=== PATIENT | male | born 1980 | race American Indian/Alaskan Native ===

== ENCOUNTER 2018-01-25 05:58 | Emergency (ER) | payer OTHER ==
[2018-01-25] MEDS ORDERED: Sodium Chloride 0.9% 1,000 ML IV STA (07:34)
[2018-01-25] MEDS ORDERED: DiphenhydrAMINE 50 mg/ml Inj IV STA (07:34)
[2018-01-25] MEDS ORDERED: EPINEPHrine 1 mg/ml (1:1000) Inj SC STA (07:35)
[2018-01-25] MEDS ORDERED: EPINEPHrine 1 mg/ml (1:1000) Inj ONE (07:48)
--- NOTE | 2018-01-25 07:52 | ED PDOC ---
HPI: Allergic Reaction Time Seen by Provider: 01/25/18 07:14 Chief Complaint (Nursing): Allergic Reaction Chief Complaint (Provider): Allergic Reaction History Per: Patient History/Exam Limitations: no limitations Onset/Duration Of Symptoms: Days (x2) Current Symptoms Are (Timing): Still Present Additional Complaint(s): 37 year old male presenting for evaluation of upper and lower lip swelling, as well as lower facial swelling since 2100 last night. Patient states he was at the [employer] shop yesterday around 1400 when the [employer] used some kind of "dye" on his fernandez and lower face. Patient states his swelling began at 2100 yesterday and has persisted since. Patient reports itching to the affected areas, but denies any pain. Patient also reports taking Benadryl and using Calamine spray with no relief of symptoms. Patient denies any headache, tongue swelling, diff iculty breathing, associated pain, rash, chest pain, shortness of breath, fevers, or chills. PMD: Non-[facility] Provider ([place], [place]) Past Medical History Vital Signs: Last Vital Signs Temp 99.5 F 01/25/18 06:09 Pulse 90 01/25/18 06:09 Resp 16 01/25/18 06:09 BP 138/80 01/25/18 06:09 Pulse Ox 98 01/25/18 06:09 - Medical History PMH: No Chronic Diseases - Surgical History Surgical History: No Surg Hx - Family History Family History: States: Unknown Family Hx - Home Medications Home Medications: Ambulatory Orders Medication Instructions Recorded Amoxicillin/Clavulanate [Augmentin 1 tab PO BID 7 Days tab 01/25/18 875 MG-125 MG] Dexamethasone [Decadron] 10 mg PO TID 2 Days tablet 01/25/18 DiphenhydrAMINE [Benadryl] 25 mg PO TID PRN 5 Days cap 01/25/18 Epinephrine [Epipen] 0.3 mg SC ONCE PRN #3 auto.injct 01/25/18 Famotidine [Pepcid] 20 mg PO DAILY PRN #6 tab 01/25/18 - Allergies Allergies/Adverse Reactions: Allergies Allergy/AdvReac Type Severity Reaction Status Date / Time No Known Allergies Allergy Verified 01/25/18 06:17 Review of Systems ROS Statement: Except As Marked, All Systems Reviewed And Found Negative Constitutional: Negative for: Fever, Chills ENT: Positive for: Mouth Swelling (lip swelling, no intraoral swelling). Negative for: Mouth Pain, Throat Pain Cardiovascular: Negative for: Chest Pain Respiratory: Negative for: Shortness of Breath Neurological: Negative for: Headache Physical Exam - Reviewed Nursing Documentation Reviewed: Yes Vital Signs Reviewed: Yes - Physical Exam Appears: Positive for: Uncomfortable Head Exam: Positive for: ATRAUMATIC, NORMAL INSPECTION, NORMOCEPHALIC Skin: Positive for: Normal Color, Warm, Dry. Negative for: Rash (no rash or erythema noted to the body) Eye Exam: Positive for: EOMI, Normal appearance, PERRL ENT: Positive for: Other (upper and lower lip swelling, tongue not swollen, intraoral with no swelling or edema, lips non-tender; lower half of the face is swollen from the chin down through the neck, area is non-tender, fernandez noted, no rash or erythema noted) Neck: Positive for: Normal, Painless ROM, Supple Cardiovascular/Chest: Positive for: Regular Rate, Rhythm. Negative for: Murmur Respiratory: Positive for: Normal Breath Sounds. Negative for: Respiratory Distress Gastrointestinal/Abdominal: Positive for: Normal Exam, Soft. Negative for: Tenderness, Guarding, Rebound Back: Positive for: Normal Inspection. Negative for: L CVA Tenderness, R CVA Tenderness, Vertebral Tenderness Extremity: Positive for: Normal ROM. Negative for: Tenderness, Pedal Edema, C skilled nursing Tenderness, Deformity, Swelling Neurologic/Psych: Positive for: Alert, Oriented (x3). Negative for: Motor/Sensory Deficits - Laboratory Results Result Diagrams: 01/25/18 07:40 01/25/18 07:40 Interpretation Of Abn Labs: no acute - ECG O2 Sat by Pulse Oximetry: 98 (RA) Pulse Ox Interpretation: Normal - Progress ED Course And Treament: 930: Pt. stable. Lower lip swelling improving. Feels better and less swelling. Voice improving. Dr. Bai in ED and scoped pt. States no glottic swelling. Wants ct. 1000: Stable. Neck swelling improving. 1045: CT done and Dr. Bai reviewed. Wants pt. to be admitted and IV unasyn. 1230: Pt. eating, tolerating well. No dyspnea, tongue swelling. Upper lip still swollen, mild swelling lower lip. Mild swelling neck anterior. No pain. 1415: Pt. laughing with significant other in room. Is aaox3. Pain free. Has capacity to make decisions. Communicating in baseline voice per family. Mini mental status exam intact. Pt. states he feels much better. He does not want to be admitted for obs and further tx. Significant other aware of pt. decision. Pt. aware of high risk of or significant morbidity from swelling of the face, neck due to compromise of the airway. He may have real difficulty breathing or may not be able to breath. Pt. is aware of the risk and wishes to go home. Will dc with decadron, benadryl, pepcid, epipen, and antibiotics (augmentin) as recommded by Dr. Bai as pt. wants to go home. Currently, pt. upper lip is swollen fully, lower lip mildly swollen, anterior neck, chin, and lower 1/3 of face with swelling mild to moderate. No tenderness anywhere. No tongue swelling. No uvula swelling. - Critical Care Total Time (In Min): 120 Documented Critical Care: Time excludes all time spent performint seperately billable procedures Disposition - Clinical Impression Clinical Impression: Angioedema, Folliculitis - Patient ED Disposition Is Patient to be Admitted: No Counseled Patient/Family Regarding: Diagnosis, Need For Followup, Rx Given - Disposition Referrals: Carlos Bai MD [Staff Provider] - 01/26/18 [facility] [Outside] - 01/26/18 Disposition: Against Medical Advice Disposition Time: 14:48 Condition: FAIR Additional Instructions: You have chosen not to be admitted for observation and further treatment. You are aware of high risk of or significant morbidity from swelling of the face and neck due to compromise of the airway. You may have real difficulty breathing or may not be able to breath. You are aware of the risk and you are refusing to stay in the hospital. You are getting medications to go home on, but that is not the standard of care and is not the 1st choice of treatment for your condition. Prescriptions: Amoxicillin/Clavulanate [Augmentin 875 MG-125 MG] 1 tab PO BID 7 Days tab Dexamethasone [Decadron] 10 mg PO TID 2 Days tablet DiphenhydrAMINE [Benadryl] 25 mg PO TID PRN 5 Days cap PRN Reason: Itching / Pruritus Epinephrine [Epipen] 0.3 mg SC ONCE PRN #3 auto.injct PRN Reason: Anaphylaxis Famotidine [Pepcid] 20 mg PO DAILY PRN #6 tab PRN Reason: Pain Instructions: Angioedema, Folliculitis (DC) Forms: [employer] (Georgian) Medical Decision Making Medical Decision Makin Plan: -EKG -PTT/PT -Benadryl 50mg IV -Epinephrine 0.3mg SC -Pepcid 20mg IVP -Solu-Medrol 125mg IVP -1L NS IVB -Reevaluation Patient gave consent to send pictures to Dr. Bai, ENT, who states she will come to the ED to evaluate the patient. Scribe Attestation: Documented by Wenceslao Marques, acting as a scribe for Petros Cherry MD. Provider Scribe Attestation: All medical record entries made by the Scribe were at my direction and personally dictated by me. I have reviewed the chart and agree that the record accurately reflects my personal performance of the history, physical exam, medical decision making, and the department course for this patient. I have also personally directed, reviewed, and agree with the discharge instructions and disposition.
[2018-01-25 07:55] LABS: BASO % 0.2 % (0.0-2.0); EOS # 0.1 K/uL (0.0-0.7); EOS % 1.8 % (0.0-4.0); HEMOGLOBIN 14.9 g/dL (12.0-18.0); LYMPH # 1.4 K/uL (1.0-4.3); LYMPH % 18.3 % (20.0-40.0); MEAN CELL VOLUME 91.4 fl (80.0-94.0); MEAN CORPUSCULAR HEMOGLOBIN 29.9 pg (27.0-31.0); MEAN CORPUSCULAR HGB CONC 32.7 g/dL (33.0-37.0); MEAN PLATELET VOLUME 8.8 fl (7.2-11.7); MONO # 0.6 K/uL (0.0-0.8); MONO % 8.2 % (0.0-10.0); NEUT # 5.6 K/uL (1.8-7.0); NEUT % 71.5 % (50.0-75.0); NRBC % 0.1 % (0.0-0.0); RED CELL DISTRIBUTION WIDTH 12.8 % (11.5-14.5); WHITE BLOOD COUNT 7.9 K/uL (4.8-10.8)
[2018-01-25 08:02] VITALS: RESP 19
[2018-01-25 08:12] LABS: ALB/GLOB RATIO 1.5 (1.0-2.1); ALBUMIN 4.5 g/dL (3.5-5.0); ALT/SGPT 28 U/L (21-72); AST/SGOT 28 U/L (17-59); BLOOD UREA NITROGEN 12 mg/dl (9-20); CALCIUM 9.2 mg/dL (8.4-10.2); GFR NON-AFRICAN AMERICAN > 60
[2018-01-25 08:51] LABS: PROTHROMBIN TIME 11.8 Seconds (9.8-13.1)
[2018-01-25 08:54] LABS: PARTIAL THROMBOPLASTIN TIME 31.2 Seconds (25.6-37.1)
[2018-01-25] MEDS ORDERED: Lidocaine 2% Inj (20ml) ONE (09:11)
[2018-01-25] MEDS ORDERED: Iohexol 300 100 ML IJ ONE (10:10)
[2018-01-25] MEDS ORDERED: Sodium Chloride 0.9% 50 ML IV ONE (10:10)
--- NOTE | 2018-01-25 11:21 | CT ---
Date of service: 01/25/2018 PROCEDURE: CT NECK WITHOUT CONTRAST HISTORY: swelling neck COMPARISON: None. TECHNIQUE: CT of the neck without intravenous contrast. Coronal and sagittal reformats generated. Radiation dose: Total exam DLP = 292.88 mGy-cm. This CT exam was performed using one or more of the following dose reduction techniques: Automated exposure control, adjustment of the mA and/or kV according to patient size, and/or use of iterative reconstruction technique. FINDINGS: NASOPHARYNX: Unremarkable. SUPRAHYOID NECK: Unremarkable oropharynx, oral cavity, parapharyngeal space and retropharyngeal space. INFRAHYOID NECK: There is a component of supraglottic laryngeal edema. The vocal cords are edematous. MASS: None. GLANDS: Parotid and submandibular glands unremarkable. Normal size thyroid gland, without nodule. LYMPH NODES: Normal. No lymphadenopathy. CERVICAL SPINE: No fracture or focal lesion. OTHER FINDINGS: Profound edema throughout the neck extending from infratemporal fossa to the thoracic inlet. IMPRESSION: Profound edema from the infratemporal fossa through the thoracic inlet. With respect to the airway at laryngeal complex, the most severe changes are identified in the infrahyoid region. There is no evidence of obstructing edematous process.
[2018-01-25 15:25] VITALS: BP 131/68; PULSE 74; TEMP 98.2; O2SAT 97
--- NOTE | 2018-01-25 20:51 | CARD ---
APPROVED REPORT Date of service: 01/25/2018 EKG Measurement Heart [id number] <Conclusion> Normal sinus rhythm Normal ECG
--- NOTE | 2018-01-26 12:35 | CP.PCM.PN ---
Subjective - Date & Time of Evaluation Date of Evaluation: 01/25/18 Time of Evaluation: 09:30 - Subjective Subjective: see below Objective - Vital Signs/Intake and Output Vital Signs (last 24 hours): Temp Pulse Resp BP Pulse Ox 98.2 F 74 19 131/68 97 01/25/18 15:00 01/25/18 15:00 01/25/18 15:00 01/25/18 15:00 01/25/18 15:00 - Labs Labs: 01/25/18 07:40 01/25/18 07:40 PT 11.8 Seconds (9.8-13.1) 01/25/18 07:40 INR 1.0 01/25/18 07:40 APTT 31.2 Seconds (25.6-37.1) 01/25/18 07:40 Assessment and Plan - Assessment and Plan (Free Text) Assessment: ENT Consult HPI 37 y/o healthy male woke up this morning with painless swelling of upper and lower lips and entire neck. No mouth swelling. No problems swallowing. No throat or neck pain. No voice changes. Swelling has improved since being in the ER and receiving steroids and epi. No noew meds. No new foods. He takes no meds. NKDA PMH denies Exam afebrile awake, alert, comfortable upper and lower lips moderate swollen diffusely; no tenderness face not swollen, but there is diffuse swlling (mild) of entire neck from jaw line down to clavicles without fluctuance or tenderness. no erythema or induration. oral cavity: FOM soft, no swelling; no tongue swelling; no palate swelling; easily able to see uvula and posterior pharynx Fiberoptic laryngoscopy: normal; no swelling of the hypopharynx or larynx. airway widely patent. WBC 7.9 Impression angioedema of unclear etiology however, given the neck swelling i advise CT neck. will do without contrast so as to limit new drug administration in this patient who is presumably having episode of hyper-allergic response to something. i also explained to the patient that while he feels better and does not have any airway swelling, this may develop in the next 24 hours. i thereofore recommend he be admitted for observation and treatment. i also advise we monitor the neck swelling with admission. he understands i also recommend he have an outpatient allergy/immunology work-up for possible causes of this type of allergic reaction / angioedema. he has been to [facility] in [place] before (had septoplasty years ago) and will f/u there. ER will call me after CT is done
== END 2018-01-25 15:00 | disposition home or self-care (01) ==
LOC: H.ER 05:58
DX: T78.3XXA Angioneurotic edema, initial encounter (principal); L73.9 Follicular disorder, unspecified
CPT/HCPCS: 70490; 80053; 84484; 85025; 85610; 85730; 87040; 93005; 96372; 96374; 96375; 99285; J0171; J0295; J1200; J2930; J7030